=== PATIENT | female | born 1960 | race Caucasian/White ===

== ENCOUNTER → 2018-05-14 09:08 | Outpatient (REF) | payer OTHER, SELFPAY ==
[2018-05-14 13:03] LABS: Anion Gap 9.7 mmol/L (3-11); BUN 9 mg/dL (7-18); CO2 28.3 mmol/L (21.0-32.0); CREATININE 0.98 mg/dL (0.55-1.02); Chloride 104 mmol/L (98-107); Cholesterol 206 mg/dL (50-200); Estimated GFR 58.71 (mL/min/1.73m2); Glucose 106 mg/dL (70-100); HDL Cholesterol 69 mg/dL (40-60); LDL CHOLESTEROL 115 mg/dL (<100); Potassium 4.3 mmol/L (3.5-5.1); Sodium 142 mmol/L (136-145); Triglyceride 118 mg/dL (30-150)
== END ==
LOC: NCHCN 09:08
PROVIDERS: PCP Nurse Practitioner Family; Visit Provider Nurse Practitioner Family
DX: Z00.00 Encounter for general adult medical examination without abnormal findings (principal); Z13.228 Encounter for screening for other metabolic disorders; Z13.220 Encounter for screening for lipoid disorders
CPT/HCPCS: 80048; 80061; 83721; 83036; 84443

== ENCOUNTER 2018-06-29 12:45 | Outpatient (REF) | payer OTHER, SELFPAY | END 2018-06-29 13:05 | LOC: NCHCN 12:45 | PROVIDERS: PCP Nurse Practitioner Family; Visit Provider Nurse Practitioner Family | DX: I10 Essential (primary) hypertension (principal) ==

== ENCOUNTER 2018-06-29 19:14 | Outpatient (REF) | payer OTHER, SELFPAY ==
[2018-06-29 19:50] LABS: Anion Gap 11.2 mmol/L (3-11); BUN 10 mg/dL (7-18); CO2 24.8 mmol/L (21.0-32.0); Calcium 8.7 mg/dL (8.5-10.1); Chloride 106 mmol/L (98-107); Glucose 90 mg/dL (70-100); Potassium 4.5 mmol/L (3.5-5.1); Sodium 142 mmol/L (136-145)
== END 2018-06-29 19:34 ==
LOC: NCHCN 19:14
PROVIDERS: PCP Nurse Practitioner Family; Visit Provider Nurse Practitioner Family
DX: I10 Essential (primary) hypertension (principal)
CPT/HCPCS: 80048

== ENCOUNTER 2018-08-14 00:27 | Outpatient (CLI) | payer OTHER, SELFPAY ==
--- NOTE | 2018-08-14 12:44 | DI.US_ITS ---
SYMPTOMS/DIAGNOSIS: H/O FIBROIDS, N95.0, POSTMENOPAUSAL BLEEDING, D25.1 PELVIC ULTRASOUND: Transabdominal and transvaginal examination was performed. There are no priors for comparison at this time. The uterus measures 7.8 cm long x 5.1 cm AP x 7.8 cm transverse. The endometrial stripe is within normal limits at .6 cm. No myometrial mass is seen. The right ovary measures 3.5 x 2.1 x 3.6 cm. There is a 3.6 cm follicular cyst. There is normal blood flow to the right ovary. No evidence of torsion is seen. A left ovary is not definitely visualized. There is a 6 x 6.1 x 3.6 cm soft tissue avascular well circumscribed solid mass seen posterior and slightly to the left of the uterus. It does abut the uterus. The kidneys are normal in size. There is an avascular anechoic rounded area in the right renal pelvis. This may represent a prominent extrarenal pelvis or peripelvic cyst. IMPRESSION: 1. 6.1 cm soft tissue mass posterior and slightly to the left of the uterus. It does abut the uterine wall. Differential considerations include a uterine fibroid, left ovarian mass or other adnexal mass should also be considered. An MRI of the pelvis with and without contrast may be considered for further evaluation.
== END 2018-08-14 00:47 ==
PROVIDERS: PCP Nurse Practitioner Family; Visit Provider Nurse Practitioner Family
DX: N95.0 Postmenopausal bleeding (principal); D25.1 Intramural leiomyoma of uterus; R19.04 Left lower quadrant abdominal swelling, mass and lump
CPT/HCPCS: 76830; 76856

== ENCOUNTER 2018-08-28 15:00 | Outpatient (REF) | payer OTHER, SELFPAY ==
--- NOTE | 2018-08-28 13:20 | ENDOMET_PTH ---
PATIENT: Ivania Mcfarlane LOC: [facility] U#:[id number] AGE/SX: 58/F ROOM: RE08/28/[address]: Malinda Lopes NP : 1960 BED: DIS: 08/28/2018 SPEC #: [id number] RECD: 08/28/18 17:20 STATUS: SAMIA REDonna #: [id number] PRIMITIVO: 08/28/18 13:[address]: Malinda Lopes NP DEPT: Surgical Specimen RECD BY: Bina Randall ENTERED: 08/28/18 17:21 SP TYPE: Endomet OTHR DR: Clarisa Sánchez Tissues: 1 - ENDOMETRIUM BX/ALMA ROSAETTE Procedures: GROSS AND MICRO LEVEL 4 Comments: [id number]
== END 2018-08-28 15:20 ==
LOC: LBN 15:00
PROVIDERS: PCP Nurse Practitioner Family; Visit Provider Nurse Practitioner Women's Health
DX: N84.0 Polyp of corpus uteri (principal); N83.8 Other noninflammatory disorders of ovary, fallopian tube and broad ligament; N95.0 Postmenopausal bleeding; D25.9 Leiomyoma of uterus, unspecified
CPT/HCPCS: 88305

== ENCOUNTER 2019-07-02 14:20 | Outpatient (REF) | payer MEDICAID, SELFPAY ==
--- NOTE | 2019-07-02 16:45 | PAPFT_PTH ---
PATIENT: Ivania Mcfarlane LOC: [facility] U#:[id number] AGE/SX: 58/F ROOM: RE07/02/[address]: Clarisa Sánchez : 1960 BED: DIS: 07/02/2019 SPEC #: [id number] RECD: 07/02/19 18:19 STATUS: SAMIA REDonna #: [id number] PRIMITIVO: 07/02/19 16:[address]: Clarisa Sánchez DEPT: [facility] Cytology RECD BY: Bina Randall ENTERED: 07/02/19 18:20 SP TYPE: PAPFT OSWALDO DR: Latonya Wood, [employer] Tissues: 1 - CX/ENDOCX FOR PAP SMEARS Procedures: PAP THIN PREP/[facility] Screening Comments: [id number]
[2019-07-02 18:54] LABS: BUN 13 mg/dL (7-18); CREATININE 0.96 mg/dL (0.55-1.02); Calcium 9.8 mg/dL (8.5-10.1); Chloride 104 mmol/L (98-107); Estimated GFR 59.91 (mL/min/1.73m2); Glucose 111 mg/dL (70-100); Potassium 4.1 mmol/L (3.5-5.1); Sodium 142 mmol/L (136-145)
== END 2019-07-02 14:40 ==
LOC: NCHCN 14:20
PROVIDERS: PCP Nurse Practitioner Family; Visit Provider Nurse Practitioner Family
DX: I10 Essential (primary) hypertension (principal); Z12.4 Encounter for screening for malignant neoplasm of cervix
CPT/HCPCS: 80048; 88142

== ENCOUNTER 2020-08-22 14:21 | Outpatient (REF) | payer MEDICAID, SELFPAY ==
[2020-08-27 15:09] LABS: Patient Race White; SARS-CoV-2 Specimen Source Nasal
[2020-08-28 10:33] LABS: SARS-CoV-2 RNA Detected (Undetected)
== END 2020-08-22 14:41 ==
LOC: NCHCN 14:21
PROVIDERS: PCP Nurse Practitioner Family; Visit Provider Nurse Practitioner Family
DX: Z20.828 Contact with and (suspected) exposure to other viral communicable diseases (principal)
CPT/HCPCS: U0003

== ENCOUNTER 2021-04-03 11:59 | Outpatient (REF) | payer MEDICAID, SELFPAY ==
[2021-04-03 19:45] LABS: HCT 42.4 % (36.0-46.0); HGB 14.1 g/dL (11.2-15.7); MCH 31.3 pg (27.0-33.0); MCHC 33.3 % (32.0-36.0); MPV 10.8 fL (8.0-11.0); Platelet Count 290 10^3/uL (130-400); RBC 4.51 10^6/uL (3.93-5.22); RDW 12.1 % (11.7-14.6); RDW-SD 42.2 fL; WBC 4.64 10^3/uL (4.4-10.8)
[2021-04-03 20:03] LABS: ALT 73 U/L (14-59); AST 39 U/L (15-37); Albumin 4.2 g/dL (3.4-5.0); Alkaline Phosphatase 90 U/L (46-116); BUN 7 mg/dL (7-18); Bilirubin, Total 0.4 mg/dL (0.2-1.0); Calcium 9.5 mg/dL (8.5-10.1); Calculated LDL 121 mg/dL (<100); Chloride 104 mmol/L (98-107); Cholesterol 209 mg/dL (<200); Estimated GFR 56.75 (mL/min/1.73m2); Glucose 105 mg/dL (74-106); HDL Cholesterol 51 mg/dL (40-60); Potassium 4.2 mmol/L (3.5-5.1); Sodium 141 mmol/L (136-145); TSH (W/Ref FT4) 1.35 uIU/mL (0.36-3.74); Total Protein 7.5 g/dL (6.4-8.2); Triglyceride 187 mg/dL (<150)
== END 2021-04-03 12:00 | disposition home or self-care (01) ==
LOC: NCHCN 11:59
PROVIDERS: PCP Nurse Practitioner Family; Visit Provider Nurse Practitioner Family
DX: I10 Essential (primary) hypertension (principal); R53.83 Other fatigue; R63.5 Abnormal weight gain; Z13.220 Encounter for screening for lipoid disorders
CPT/HCPCS: 80053; 80061; 85027; 84443

== ENCOUNTER 2021-04-26 02:28 | Outpatient (CLI) | payer MEDICAID, SELFPAY ==
--- NOTE | 2021-04-26 | DI.MAMMO_ITS ---
Exam(s) MAMMO SCREENING EXAM: MAMMO SCREENING CLINICAL HISTORY: SCREENING, Z12.39. TECHNIQUE: Bilateral full field digital CC and MLO mammographic images were obtained with 3D tomosyn thesis and utilizing computer aided detection (CAD). COMPARISON: Prior outside mammograms dating back to 2010, the most recent being January 2018. FINDINGS: There are no new spiculated masses nor malignant appearing microcalcification groups. There is no significant architectural distortion nor skin thickening-retraction. IMPRESSION: No radiographic evidence of malignancy. BI-RADS Category 1 - Negative Breast Density - Category B - Scattered areas of fibroglandular density Breast density Category C or D implies that the patient has dense breast tissue. Dense breast tissue can make it harder to find cancer on a mammogram. Dense breast tissue is also associated with an incr eased risk of breast cancer. This information about the result of the mammogram report was provided to the patient to raise their awareness. Use this report when you speak with the patient about their risks for breast cancer, which includes their family history. At that time, you may recommend additional screening tests (Ultrasoun d or MRI) as these tests may add significant information. A negative radiographic report should not delay biopsy if a dominant or clinically suspicious mass is present. Up to ten percent of cancers are not identified on mammography. A negative report may reinforce clinical impression. Adenosis and dense breasts may obscure an underlying neoplasm. False positive reports average 6 to 10%. Patient will receive a letter notifying them of these results.
== END 2021-04-26 02:48 ==
PROVIDERS: PCP Nurse Practitioner Family; Visit Provider Nurse Practitioner Family
DX: Z12.31 Encounter for screening mammogram for malignant neoplasm of breast (principal); R92.8 Other abnormal and inconclusive findings on diagnostic imaging of breast
CPT/HCPCS: 77063; 77067

== ENCOUNTER 2022-07-01 13:49 | Outpatient (CLI) | payer MEDICAID, SELFPAY ==
--- NOTE | 2022-07-01 13:30 | DI.RAD_ITS ---
Exam(s) XR WRIST RT COMPL NAVICULAR EXAM: XR WRIST RT COMPL NAVICULAR CLINICAL HISTORY: pain/cyst. TECHNIQUE: 2D digital imaging was performed. Four views. COMPARISON: No exams were available for comparison FINDINGS: BONES: No acute fracture is present. No bony destructive lesion is seen. JOINTS: The carpal bones are normally aligned. Degenerative changes are noted at the scaphoid trapezium and trapezium 1st metacarpal joints. Degene rative changes also noted at the 1st metacarpophalangeal joint. SOFT TISSUE: Normal. IMPRESSION: Degenerative changes. DATA REPOSITORY: RADIATION DOSE DELIVERED:
== END 2022-07-01 13:50 | disposition home or self-care (01) ==
LOC: DIORS 13:49
PROVIDERS: PCP Nurse Practitioner Family; Referring Provider Nurse Practitioner Family; Visit Provider Physician Assistant Surgical
DX: M25.531 Pain in right wrist (principal); M19.031 Primary osteoarthritis, right wrist; M18.11 Unilateral primary osteoarthritis of first carpometacarpal joint, right hand
CPT/HCPCS: 73110

== ENCOUNTER 2022-08-02 15:53 | Outpatient (REF) | payer MEDICAID, SELFPAY ==
[2022-08-04 10:23] LABS: COVID-19 RT-PCR UVMMC Result Negative (Negative)
== END 2022-08-02 15:54 | disposition home or self-care (01) ==
LOC: LBN 15:53
PROVIDERS: PCP Nurse Practitioner Family; Visit Provider Physician Assistant Medical
DX: Z20.822 Contact with and (suspected) exposure to COVID-19 (principal); R05.8 Other specified cough
CPT/HCPCS: U0003

== ENCOUNTER 2023-04-23 02:56 | Outpatient (CLI) | payer MEDICAID, SELFPAY ==
[2023-04-23 09:37] LABS: Abs Immature Grans 0.02 10^3/uL (0.0-0.06); Absolute Basophil Count 0.02 10^3/uL (0.0-0.2); Absolute Eosinophil Count 0.09 10^3/uL (0.0-0.7); Absolute Lymphocyte Count 1.78 10^3/uL (1.2-3.4); Absolute Neutrophil Count 2.61 10^3/uL (1.2-6.7); Basophils % 0.4; Eosinophils % 1.9; HCT 43.5 % (36.0-46.0); HGB 14.7 g/dL (11.2-15.7); Immature Grans % 0.4; Lymphocytes % 36.9; MCH 31.3 pg (27.0-33.0); MCHC 33.8 % (32.0-36.0); MCV 93 fL (80-95); MPV 9.6 fL (8.0-11.0); Monocytes % 6.2; Neutrophils % 54.2; Platelet Count 260 10^3/uL (130-400); RBC 4.69 10^6/uL (3.93-5.22); RDW-SD 40.9 fL; WBC 4.82 10^3/uL (4.4-10.8)
[2023-04-23 10:08] LABS: ALT 40 U/L (14-59); AST 26 U/L (15-37); Alkaline Phosphatase 78 U/L (46-116); Anion Gap 8.1 mmol/L (3-11); BUN 10 mg/dL (7-18); Bilirubin, Total 0.3 mg/dL (0.2-1.0); CO2 27.9 mmol/L (21.0-32.0); CREATININE 1.1 mg/dL (0.55-1.02); Calcium 9.4 mg/dL (8.5-10.1); Calculated LDL 144 mg/dL (<100); Chloride 106 mmol/L (98-107); Cholesterol 225 mg/dL (<200); Estimated GFR 57.17 (mL/min/1.73m2); Glucose 119 mg/dL (74-106); HDL Cholesterol 57 mg/dL (40-60); Potassium 4.4 mmol/L (3.5-5.1); Sodium 142 mmol/L (136-145); TSH 2.23 uIU/mL (0.36-3.74); Total Protein 7.6 g/dL (6.4-8.2); Triglyceride 120 mg/dL (<150)
[2023-04-24 12:35] LABS: Hepatitis C Ab w Rflx HCV PCR Negative (Negative)
== END 2023-04-23 02:57 | disposition home or self-care (01) ==
LOC: LBO 02:56
PROVIDERS: PCP Nurse Practitioner Family; Visit Provider Nurse Practitioner Primary Care
DX: E78.5 Hyperlipidemia, unspecified (principal); Z11.59 Encounter for screening for other viral diseases; I10 Essential (primary) hypertension
CPT/HCPCS: 36415; 80053; 80061; 86803; 84443; 85025

== ENCOUNTER 2023-08-20 20:56 | Outpatient (REF) | payer MEDICAID, SELFPAY ==
[2023-08-20 21:23] LABS: Source Nasal/Nares
[2023-08-20 22:00] LABS: COVID-19 PCR Negative (Negative)
[2023-08-20 22:06] LABS: Bacteria Rare HPF (Negative); Epithelial Cells Rare HPF (Negative); RBC Negative HPF (0-2)
[2023-08-20 22:07] LABS: C & S Indicated? C&S Done As Ordered; Casts Negative LPF (Negative); Crystals Negative HPF (Negative); Mucus Trace (Negative)
== END 2023-08-20 20:57 | disposition home or self-care (01) ==
LOC: LBN 20:56
PROVIDERS: PCP Nurse Practitioner Family; Visit Provider Physician Assistant Medical
DX: M54.9 Dorsalgia, unspecified (principal); R10.2 Pelvic and perineal pain; J34.89 Other specified disorders of nose and nasal sinuses
CPT/HCPCS: 87635; 81015; 87086; 87480; 87510; 87660